=== PATIENT | female | born 1970 | race Caucasian/White ===

== ENCOUNTER 2016-09-03 08:21 | Emergency (ER) | payer OTHER ==
[2016-09-03 08:32] VITALS: BP 126/71
--- NOTE | 2016-09-03 08:45 | ERNOTE ---
ENT HPI Time Seen by Provider: 09/03/16 08:39 Source: patient Exam Limitations: no limitations - Immun/Allergies/Home Medications Allergies/Adverse Reactions: Allergies Allergy/AdvReac Type Severity Reaction Status Date / Time tetracycline [Tetracycline] Allergy Unknown hives, Verified 09/03/16 08:33 itching Home Medications: HOME MEDICATIONS Cephalexin [Keflex] 500 mg PO QID #28 capsule 09/03/16 [Last Taken Unknown] - History of Present Illness Narrative: Patient presents for itching and swelling and redness of the left upper eyelid. This condition started yesterday as patient felt an insect bite to the left upper eyelid then she proceeded to scratch it for 24 hours now the patient comes in for left upper eyelid redness and swelling. He has no complaints with her physician and the eyes seems to be unaffected. Eyes any fevers or chills and she has not taken any medication for this. Review of Systems - Review of Systems Constitutional: Present: no symptoms reported EYE: Present: see HPI ENT: Present: no symptoms reported Respiratory: Present: no symptoms reported Cardiology: Present: no symptoms reported Gastrointestinal/Abdominal: Present: no symptoms reported - Patient's Past Medical History Patient History - Medical: No pertinent hx Patient History - Cardiac/Respiratory: Hypertension Patient History - Cancer: No Hx of Cancer Patient History - Surgical Procedures: No surgical history Patient History - Other: None - Social History Living Situations: home Psych History: No pertinent hx Alcohol Use: none Drug Use: none Physical Exam - Physical Exam General Appearance: Present: wd/wn, alert, no apparent distress Eye Exam: Normal inspection: right, PERRL: right, EOMI: right, Other: left - the left upper eyelid appears a dramatic red warm to the touch I do not appreciate a definite puncture wound however the area appears cellulitic. There are no open lesions or purulent material and the examination of the left eye itself is within normal limits with good pupillary reflexes with this sclera being normal no conjunctival injection noted. The redness is limited to the left upper eyelid only Ears, Nose, Throat: Present: normal ENT inspection, normal pharynx Neck: Present: normal inspection, nontender, supple Respiratory: Present: no respiratory distress, normal breath sounds, no accessory muscle use, chest nontender, lungs clear Cardiovascular/Chest: Present: regular rate, rhythm, no murmur ED Progress - Vital Signs Patient's Vital Signs:: I have reviewed the patient's vital signs. Vital Signs: Vital Signs 09/03/16 08:29 Temperature 36.4 C L Pulse Rate 87 Respiratory 12 Rate Blood Pressure 126/71 O2 Sat by Pulse 96 Oximetry - Progress/Reassessment Chief Complaint: Eye Injury/Trauma Plan - Plan Plan: This patient has cellulitis of the left upper eyelid and will be treated appropriately. Departure Clinical Impression: Cellulitis of left eyelid - Departure Disposition: Home self-care Condition: Good Instructions: Cellulitis, Adult, [id number] Referrals: Donna Whitehead DO [Primary Care Provider] - Prescriptions: Cephalexin [Keflex] 500 mg PO QID #28 capsule
--- OUTSIDE RECORDS SUMMARY | 2016-09-03 08:55 | XMS REPORT | Continuity of Care Document ---
:1970 Author Organization [place] [place] [address] Care Team Providers Name Role Phone Unavailable Primary Care Provider Unavailable Source Comments This disclosure is being made pursuant to the [employer] program and maynot contain all information available regarding this patient.[facility] Active Allergies and Adverse Reactions Not on File Current Medications Be aware that medications may not be up to date as of this document. Alwaysverify current medications with the patient. Not on file Active Problems Not on file Social History Tobacco Use Types Packs/Day Years Used Date Never Assessed Plan of Care Health Maintenance Due Date Last Done Comments Retired-Pertussis Vaccine Adult 1988 Retired-Tetanus Vaccine Adult 1988 Pap Smear 1990 Mammogram 2009 Retired-INFLUENZA VACCINE 12/01/2014 Results from Last 3 Months Not on file
--- OUTSIDE RECORDS SUMMARY | 2016-09-03 08:56 | XMS REPORT | Continuity of Care Document ---
:1970 Author Organization [facility] ([facility]) Address [address] [place] [address] Phone [phone] Care Team Providers Name Role Phone Donna Whitehead Primary Care Provider [phone] Source Comments This disclosure is being made pursuant to the Care Everywhere program, applicable federal and state laws, and may not contain all informaitonavailable regarding this patient.[facility] ([facility]) Active Allergies and Adverse Reactions Allergen Noted Date Severity Reactions Comments Tetracycline 07/25/2016 Rash Current Medications Prescription Sig. Disp. Refills Start Date End Date Status hydroCHLOROthiazide 12.5 Take 12.5 Active mg tablet mg by mouth daily. buPROPion 100 mg tablet Take 100 mg Active by mouth 2 times daily. lisinopril 10 mg tablet Take 10 mg Active by mouth daily. busPIRone 15 mg tablet Take 7.5 mg 08/22/2016 Discontinued by mouth 2 times daily. Active Problems Not on file Most Recent Encounters Date Type Specialty Providers Description 08/24/2016 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) Social History Tobacco Use Types Packs/Day Years Used Date Current Every Day Smoker Cigarettes 1 Smokeless Tobacco: Never Used Tobacco Cessation:Ready to Quit: No; Counseling Given: Yes Comments: Last Filed Vital Signs Vital Sign Reading Time Taken Blood Pressure 120/80 08/22/2016 10:40 AM CDT Pulse 70 08/22/2016 10:40 AM CDT Temperature - - Respiratory Rate - - Height 1.651 m (5' 5") 08/22/2016 10:40 AM CDT Weight 77.565 kg (171 lb) 08/22/2016 10:40 AM CDT Body Mass Index 28.46 08/22/2016 10:40 AM CDT Oxygen Saturation - - Plan of Care Health Maintenance Due Date Last Done Comments Hepatitis B Vaccine (1 of 3 - Primary Series) 1970 Tdap Vaccine 1980 Lipid Disorder Screening 09/06/1987 MMR Vaccine 09/06/1987 Td Vaccine 09/06/1987 Pneumococcal Vaccine (1 of 1 - PPSV23) 1988 Cervical Cancer Screening 09/06/1999 Mammogram 2009 Influenza Vaccine: Seasonal (Season Ended) 2016 Results from Last [address] - STORE ONLY (08/24/2016 9:08 AM)EXTERNAL US - STORE ONLY (2016 11:08 AM)
== END 2016-09-03 08:48 | disposition home or self-care (01) ==
LOC: ER 08:21
DX: H00.036 Abscess of eyelid left eye, unspecified eyelid (principal)

== ENCOUNTER 2017-01-16 08:17 | Emergency (ER) | payer OTHER ==
[2017-01-16] MEDS ORDERED: KETOROLAC TROMETHAMINE 60 MG/2 ML VIAL IM ONE ×2 (08:37→08:55)
--- NOTE | 2017-01-16 08:41 | ERNOTE ---
Back Pain ER HPI Time Seen by Provider: 01/16/17 08:39 Source: patient Exam Limitations: no limitations Immunizations: IMMUNIZATION HX Immunizations Up to Date Yes History of Influenza Vaccine Yes Hx Pneumococcal Vaccination Yes Allergies/Adverse Reactions: Allergies tetracycline [Tetracycline] Allergy (Unknown, Verified 01/16/17 08:25) hives, itching Home Medications: HOME MEDICATIONS Beclomethasone Dipropionate [Qvar] 8.7 gm IH DAILY 01/16/17 [Last Taken Unknown] Hydrochlorothiazide 12.5 mg PO DAILY 01/16/17 [Last Taken Unknown] Ibuprofen [Motrin] 800 mg PO TID PRN #15 tablet 01/16/17 [Last Taken Unknown] LORazepam [Ativan] 0.25 mg PO TID PRN 01/16/17 [Last Taken Unknown] Lisinopril [Zestril] 10 mg PO 01/16/17 [Last Taken Unknown] buPROPion HCL [Wellbutrin] 100 mg PO DAILY 01/16/17 [Last Taken Unknown] Narrative: pt comes in for right sided flank pain and bilateral lumbar pain for 4-5 days. no dysuria and no fever Review of Systems - Review of Systems Constitutional: Present: no symptoms reported EYE: Present: no symptoms reported ENT: Present: no symptoms reported Respiratory: Present: no symptoms reported Cardiology: Present: no symptoms reported Gastrointestinal/Abdominal: Present: See HPI Genitourinary: Present: See HPI - Patient's Past Medical History Patient History - Medical: No pertinent hx Patient History - Cardiac/Respiratory: Hypertension Patient History - Cancer: No Hx of Cancer Patient History - Surgical Procedures: No surgical history Patient History - Other: None LMP (females 10-50): hysterectomy - Social History Living Situations: home Psych History: No pertinent hx Smoking Status: Current every day smoker Alcohol Use: none Drug Use: none - Immunizations Immunizations Up to Date: Yes Hx Pneumococcal Vaccination: Yes History of Influenza Vaccine: Yes Physical Exam - Physical Exam General Appearance: Present: wd/wn, alert, no apparent distress Head Exam: Present: normal inspection, no evidence of injury Ears, Nose, Throat: Present: normal ENT inspection Respiratory: Present: no respiratory distress, normal breath sounds, no accessory muscle use, chest nontender, lungs clear Cardiovascular/Chest: Present: regular rate, rhythm, no murmur, normal peripheral pulses Extremity Exam: Present: other - on examination this patient is tender on the right superior iliac crest upon my palpation. She has no other lesions on her back and she has no muscle spasm. Neurological Exam: Present: alert, oriented, normal mood/affect, no motor/ sensory deficits ED Progress - Results and Orders Patient's Lab Results:: I have reviewed the patient's lab results. - Vital Signs Patient's Vital Signs:: I have reviewed the patient's vital signs. Vital Signs: Vital Signs 01/16/17 08:21 Temperature 37.2 C Pulse Rate 89 Respiratory 15 Rate Blood Pressure 135/94 O2 Sat by Pulse 99 Oximetry - Progress/Reassessment Chief Complaint: Back Pain Plan - Plan Plan: X-ray appears normal and was read as normal by the radiologist. Departure Clinical Impression: Low back pain Qualifiers: Chronicity: acute Back pain laterality: right Sciatica presence: without sciatica Qualified Code(s): M54.5 - Low back pain - Departure Disposition: Home self-care Condition: Good Instructions: Low Back Sprain With Rehab-Sports[facility] Referrals: Donna Whitehead DO [Primary Care Provider] - Prescriptions: Ibuprofen [Motrin] 800 mg PO TID PRN #15 tablet PRN Reason: Pain
[2017-01-16 08:50] LABS: Hematocrit 44.1 % (37.0-47.0); Hemoglobin 15.1 gm/dL (12.5-16.0); Mean Cell Volume 87.2 fl (78-100); Mean Corpuscular Hemoglobin 29.8 pg (27-31); Mean Corpuscular Hgb Conc 34.2 g/dl (32-36); Mean Platelet Volume 9.5 fl (6.0-9.5); Neutrophil # 5.3 K/mm3 (1.3-6.0); Neutrophil % 57.6 % (42-75.0); Platelet Count 310 K/mm3 (150-450); Red Blood Count 5.06 M/mm3 (4.2-5.4); Red Cell Distribution Width 12.1 % (11.5-14.0); White Blood Count 9.2 K/mm3 (4.0-10.5)
[2017-01-16 08:57] LABS: Urine Bilirubin Negative (NEGATIVE); Urine Blood Negative /ul (NEGATIVE); Urine Ketone Negative (NEGATIVE); Urine Nitrite Negative (NEGATIVE); Urine Protein Negative (NEGATIVE); Urine Specific Gravity >=1.030 SP.GR. (1.005-1.010); Urine Urobilinogen Normal (NORMAL)
[2017-01-16 09:04] LABS: Urine Appearance Clear; Urine Bacteria None Seen; Urine Color Yellow; Urine RBC 0-5 /hpf (0-5); Urine WBC None Seen /hpf (0-5)
[2017-01-16 10:03] VITALS: BP 98/59
== END 2017-01-16 10:04 | disposition home or self-care (01) ==
LOC: ER 08:17
DX: M54.5 Low back pain (principal); F17.200 Nicotine dependence, unspecified, uncomplicated; I10 Essential (primary) hypertension

== ENCOUNTER 2018-01-02 06:26 | Inpatient (IN) ==
--- NOTE | 2017-12-12 13:20 | ANES ---
Anesthesia Pre Procedure Eval HOME MEDICATIONS Beclomethasone Dipropionate [Qvar] 8.7 gm IH DAILY 01/16/17 [Last Taken Unknown] Hydrochlorothiazide 12.5 mg PO DAILY 01/16/17 [Last Taken Unknown] Ibuprofen [Motrin] 800 mg PO TID PRN #15 tab 01/16/17 [Last Taken Unknown] LORazepam [Ativan] 0.25 mg PO TID PRN 01/16/17 [Last Taken Unknown] Lisinopril [Zestril] 10 mg PO 01/16/17 [Last Taken Unknown] buPROPion HCL [Wellbutrin] 100 mg PO DAILY 01/16/17 [Last Taken Unknown] Allergies/Adverse Reactions: Allergies Allergy/AdvReac Type Severity Reaction Status Date / Time tetracycline [Tetracycline] Allergy Unknown hives, Verified 12/06/17 15:09 itching - Planned Procedure Planned Procedure: Arthroplasty L Total Hip Medication List Reviewed:: Yes Allergies Verified: Yes Medical History (Last Reviewed 12/12/17 @ 13:19 by Augie Jack CRNA) Bronchitis Onset Date: Unknown Depression Onset Date: Unknown Dysfunctional uterine bleeding Onset Date: 02/07/12 Fatigue Onset Date: 02/05/15 H/O tubal ligation Onset Date: 1997 Herpes simplex Onset Date: Unknown Hip pain Onset Date: Unknown Hyperlipidemia Onset Date: 02/05/15 Hypertension Onset Date: Unknown Tobacco abuse Onset Date: 01/18/12 Surgical History (Last Reviewed 12/12/17 @ 13:19 by Augie Jack CRNA) H/O dilation and curettage Onset Date: Unknown H/O total vaginal hysterectomy Onset Date: 10/19/12 History of endometrial ablation Onset Date: 2011 History of endometrial biopsy Onset Date: Unknown History of incision and drainage Onset Date: 11/04/14 history of finger surgery Onset Date: 05/08/08 Family History (Last Reviewed 12/12/17 @ 13:19 by Augie Jack CRNA) Father Diabetes H/O heart bypass surgery Grandfather Prostate cancer Grandmother Stomach cancer - Family Anesthesia History Family History:: no untoward family reactions to anesthesia - Airway/Neck/Teeth Within Normal Limits:: Yes Teeth Condition: Intact - Respiratory Smoking Status: Current every day smoker Discussed smoking cessation including day of surgery: Yes Sleep Apnea currently treated: No - Cardiovascular Patient History - Cardiac/Respiratory: Hypertension, Hyperlipidemia Tolerates Activity: Fair - Anesthesia Assessment and Plan ASA Class: PS, II Anesthesia Type Plan: Spinal
[~2018-01-02 06:26] MED LIST: MORPHINE SULFATE 15 MG TABLET.SA PO PRN; ROPIVACAINE HCL/PF 100 MG, EPINEPHrine 0.2 MG, KETOROLAC TROMETHAMINE 30 MG in NORMAL S... IJ PRN; TRANEXAMIC ACID 1,000 MG in NORMAL SALINE 100 ML IV PRN; ceFAZolin SODIUM 1 GM VIAL IV PRN
[2018-01-02] MEDS: RINGER'S SOLUTION,LACTATED 1,000 ML IV PRN ×3 (07:03→09:35)
[2018-01-02] MEDS ORDERED: ceFAZolin SODIUM 1 GM VIAL IV PRN (08:36)
[2018-01-02] MEDS ORDERED: ZOLPIDEM TARTRATE 5 MG TABLET PO PRN (09:55)
[2018-01-02] MEDS ORDERED: MORPHINE SULFATE 2 MG/ML DISP.SYRIN IV PRN (09:55)
[2018-01-02] MEDS ORDERED: MAGNESIUM HYDROXIDE 30 ML UDC PO PRN (09:55)
[2018-01-02] MEDS ORDERED: MAG HYDROX/ALUMINUM HYD/SIMETH 30 ML UDC PO PRN (09:55)
[2018-01-02] MEDS ORDERED: diphenhydrAMINE HCL 50 MG/ML VIAL IV PRN (09:55)
[2018-01-02] MEDS ORDERED: ACETAMINOPHEN 500 MG TABLET PO PRN (09:55)
[2018-01-02] MEDS ORDERED: ALPRAZolam 0.25 MG TABLET PO PRN (09:57)
--- NOTE | 2018-01-02 10:00 | OR ---
Operative Report - Dictated Report Narrative: Date: 01/02/2018 Preoperative diagnosis: Left hip degenerative joint disease. Postoperative diagnosis: Left hip degenerative joint disease. Procedure: Left Total hip arthroplasty. Surgeon: Jasen Rothman M.D. Procurement Officer: Silas Walker PA-C Anesthesia: Spinal and local periarticular joint injection. Complications: None Specimens: Bone for disposal. Estimated blood loss: 150 milliliters. Retained implants: Depuy [place] size 3 femoral stem standard offset. Size 48 millimeter outside diameter 3-hole Cowen Gription acetabular cup. 48 millimeter outside by 32 millimeter inside diameter highly cross-linked acetabular liner. 32 millimeter diameter +9 millimeter ceramic femoral head. Cancellous 6.5mm screw 30 millimeter length Indications: Mrs. Hood is a 47-year-old female who has had long-standing left hip pain and arthrosis. This patient was followed in my clinic for period of time with significant complaints of left hip pain consistent with arthritic changes. She failed conservative measures including but not limited to activity modification, passage of time, medications, and other conservative measures. Patient wished to proceed with surgical treatment. The risks, benefits, and alternatives were discussed in clinic. The risks of , blood clots, bleeding, infection, nerve/tendon blood vessel/ injury, malposition of components, dislocation and/or instability of joint, intraoperative fracture, postoperative limited range of motion, persistent pain, failure of components, and need for additional procedures. Patient wished to proceed. Consent was obtained after answering all questions. Procedure: After marking the correct extremity on the floor, the patient was taken to the operating room. A timeout was performed. IV antibiotics consisting of Ancef were administered prior to the procedure. A spinal anesthetic was induced by anesthesia. A Kaplan catheter was inserted. The patient was then transitioned to a lateral position on a well-padded pegboard. An axillary roll was placed. The head was in neutral position. The non- operative down leg was well-padded with SCD and NATHALIA hose in place. The arms were supported and padded to protect from any undue pressure on the bony prominences and nerves. A well-padded anterior and posterior pelvic and chest posts were secured in order to maintain a stable position of the pelvis. This was placed so that the pelvis was perpendicular to the floor. The body was in line with the pelvis. Once it was felt that we had protected all the bony prominences and the patient was well secured with a safety belt as well, the leg was pre-scrubbed with alcohol, prepped and draped in a standard sterile fashion. A standard anterior lateral hip incision was marked out over the greater trochanter. Ioban drapes were then placed. The skin incision was then made. Sharp dissection with a scalpel utilizing cautery for hemostasis was carried out down to the gluteus and iliotibial band fascia. This was split in line with the skin incision. The greater trochanter bursa was excised. The anterior and posterior margins of the abductor tendon were identified. The anterior 1/2-1/3 of the tendon was tagged and reflected off the greater trochanter leaving a sleeve of tendon for repair at the completion of the case. This exposed the underlying hip joint capsule. A limb length stitch was placed in the skin and referencedd off a deloris on the greater trochanter for evaluation of intraoperative limb lengths. An inverted T-type capsulotomy was made extending this up to the brim of the acetabulum. Using Homans to assist with elevation of the soft tissues off the anterior, superior, and inferior aspects of the femoral neck, the hip was then placed in a figure 4 position and the femoral head was dislocated. With the leg in an externally rotated and adducted position, the cutting flag was utilized in order to deloris for a standard femoral neck cut approximately a fingerbreadth above the level of the lesser trochanter. This was done with reference to pre-operative films and overall alignment. This was done while protecting the surrounding soft tissues with Homans. The femoral head was then removed and sized for guidance on preparation of the acetabulum. It was noted that there was loss of articular cartilage on both the femoral head and weightbearing portions of the acetabulum. We then returned the leg to the table and turned our attention to the acetabulum. While protecting the surrounding soft tissues, the labrum and remaining tissue in the fovea were excised using a scalpel and cautery. A series of reamers up to size 48 millimeter were utilized to prepare the acetabulum. The final reamer had good purchase and exposed the bleeding subchondral bone. The acetabulum was then thoroughly irrigated ensuring that all bony and cartilaginous materials were removed, and the final acetabular shell was impacted into place. This was placed in approximately 45 degrees of abduction and 20 degrees of anteversion utilizing the outrigger and body axis for alignment. She did have some large anterior osteophytes which were partially resected utilizing an osteotome. This had a good press fit. 1 6.5mm cancellous screw was placed in the superior posterior quadrant of the acetabulum. The shell was then thoroughly irrigated and the final polyethylene was impacted into place ensuring that it seated completely. This was then protected with a sponge while we returned our attention to the femur. With the leg in a figure 4 position, utilizing Homans for soft tissue protection, a box cutting osteotome, followed by Charmarthaey awl, followed by serial reamers and broaches were utilized in order to prepare the femur. It was found that a size 3 broach gave good axial and rotational stability. The calcar reamer was utilized in order to clean up the cut edges. The proximal femur was visualized to ensure that there were no signs of fracture. A series of heads and necks were trialed. It was found that a standard neck and a + 9 femoral head gave good overall stability. There was minimal longitudinal instability. With the leg in the position of sleep, the femoral head was well covered. Hip range of motion was able to reach full extension and external rotation to greater than 75 degrees prior to impingement along the posterior acetabulum. The hip was able to be flexed to greater than 90 degrees with internal rotation greater than 60 degrees prior to anterior impingement. The limb lengths were near equal based on comparison to the contralateral side and the prior placed limb length stitch. At this point it was felt these were the appropriately sized femoral components as well as neck and femoral head. The trial implants were removed. The femur was thoroughly irrigated. The final implants were impacted into place, and the hip was reduced. After ensuring that there was no damage to the proximal femur, the standard periarticular joint injection of ropivacaine, Toradol, and epinephrine were injected into the joint capsule and surrounding soft tissues. Anesthesia then administered intravenous tranexamic acid. The capsule was repaired with a single interrupted #1 Vicryl. The abductor tendon was repaired to the greater trochanter utilizing #5 Ethibond through drill holes. This was oversewn with #1 Vicryl. The fascia was closed with interrupted #1 Vicryl. The wounds were thoroughly irrigated as we closed in layers. The deep and subcutaneous fat layers were closed with 0 and 3-0 Vicryl respectively. The subcutaneous tissue was closed with a running 3-0 Vicryl and the skin with running 3-0 Monocryl subcutaneous and Prineo Dermabond dressing. All sponge, needle, blade, and instrument counts were correct prior to closing the wounds. Sterile dressings consisting of 4 x 4's, and tape were applied. The patient was awoken and transferred to her hospital bed and then to the postanesthesia care unit in stable condition. Postoperative condition: The plan is to admit to the medical/surgical inpatient floor postoperatively. There will be a projected 1 to 3 day hospital stay. Postoperatively 24 hours of IV antibiotics, pain control, physical therapy, occupational therapy, and medical comanagement will be utilized. Patient will be weightbearing as tolerated with anterior hip precautions. Postoperative films will be obtained in the recovery room.
--- NOTE | 2018-01-02 10:47 | ANES ---
Post Anesthesia Discharge - Transfer of Care Transfer of Care handoff given to nurse: Yes - Discharge from PACU Discharge from PACU when meets criteria: Yes
[2018-01-02] MEDS: KETOROLAC TROMETHAMINE 15 MG/ML VIAL IV SCH ×3 (11:05→23:34)
[2018-01-02] MEDS: ceFAZolin SODIUM 1 GM in DEXTROSE 5 % IN WATER 100 ML IV SCH ×6 (11:05→23:41)
[2018-01-02] MEDS: DEXTROSE 5%-LACTATED RINGERS 1,000 ML IV PRN ×2 (11:06→19:06)
[2018-01-02] MEDS: oxyCODONE HCL/ACETAMINOPHEN 1 TAB TABLET PO PRN ×4 (11:06→23:36)
--- NOTE | 2018-01-02 12:03 | ANES ---
Post Anesthesia Assessment - Vital Signs Vitals: Last Vital Signs Temp 36.7 C 01/02/18 10:35 Pulse 64 01/02/18 10:35 Resp 19 01/02/18 10:35 BP 98/63 01/02/18 10:35 Pulse Ox 94 01/02/18 10:35 Airway Patency: Normal - Mental Status Level Of Consciousness: Awake - Pain Level Pain Score: 0 - N/V Assessment Nausea/Vomiting Presence: None Dehydration:: No
[2018-01-02] MEDS: ONDANSETRON HCL/PF 2 MG/ML VIAL IV PRN (13:49)
[2018-01-02] MEDS ORDERED: SENNOSIDES/DOCUSATE SODIUM 1 TAB TABLET PO SCH (21:00)
[2018-01-02] MEDS: MORPHINE SULFATE 15 MG TABLET.SA PO SCH (21:18)
[2018-01-03] MEDS: oxyCODONE HCL/ACETAMINOPHEN 1 TAB TABLET PO PRN ×2 (04:53→10:02)
[2018-01-03] MEDS: KETOROLAC TROMETHAMINE 15 MG/ML VIAL IV SCH ×2 (04:54→11:28)
[2018-01-03 05:26] LABS: Hemoglobin 10.3 gm/dL (12.5-16.0); Mean Corpuscular Hemoglobin 29.6 pg (27-31); Mean Corpuscular Hgb Conc 32.2 g/dl (32-36); Mean Platelet Volume 9.8 fl (8-12.5); Platelet Count 185 K/mm3 (150-450); Red Blood Count 3.48 M/mm3 (4.2-5.4); Red Cell Distribution Width 13.5 % (11.5-14.0); White Blood Count 8.2 K/mm3 (4.0-10.5)
[2018-01-03 05:40] LABS: Anion Gap 9.2 mmol/L (6.8-13.8); BUN/Creatinine Ratio 14.5 (9.0-21.6); Calcium * 8.2 mg/dL (7.9-10.9); Carbon Dioxide 25.7 mmol/L (24-32.6); Estimated Creat Clear 112.4; Potassium 3.9 mmol/L (3.4-4.6)
[2018-01-03] MEDS: ONDANSETRON HCL/PF 2 MG/ML VIAL IV PRN (07:07)
[2018-01-03] MEDS: MORPHINE SULFATE 15 MG TABLET.SA PO SCH (08:24)
[2018-01-03] MEDS ORDERED: ENOXAPARIN SODIUM 40 MG/0.4 ML SYRG SC SCH (08:55)
[2018-01-03] MEDS ORDERED: LISINOPRIL 10 MG TABLET PO SCH (09:00)
[2018-01-03] MEDS ORDERED: HYDROCHLOROTHIAZIDE 12.5 MG CAPSULE PO SCH (09:00)
--- NOTE | 2018-01-03 12:20 | DS ---
(1) Status post left hip replacement Problem: Acute (2) Degenerative joint disease of left hip Problem: Chronic (3) Acute blood loss anemia Problem: Acute (4) Hypertension Problem: Chronic (5) Hyperlipidemia Problem: Chronic Description of Stay: Mrs. Hwang was admitted to the floor after undergoing left total hip arthroplasty. Tolerated this well. Was admitted to the floor postoperatively for 24 hours of IV antibiotics, pain control, medical comanagement, and occupational and physical therapy. OT and PT were consulted to assist with activities of daily living and ambulation. Was made weightbearing as tolerated with range of motion with anterior hip precautions. Pain was initially controlled with IV regimen. This was transitioned to oral once tolerating a by mouth intake. Was resumed on home diet and medications. Had a Kaplan catheter inserted and the operating room which was discontinued on postoperative day 1. Lovenox SCD and NATHALIA hose were utilized for DVT prophylaxis. Vital signs remained stable to the hospital course. Serial labs were obtained which showed a final hemoglobin of 10.3 grams. BMP was reviewed and was stable. Physical examination throughout the hospital course showed an extremity that had sensation that was intact to light touch, palpable pulses, a benign wound, motor intact to the toes, ankle, and knee. Once an oral pain regimen was tolerated and physical therapy goals were met, it was felt that they were stable for discharge to home. Instructions: Continue with weightbearing as tolerated and range of motion with anterior hip precautions. It is OK to shower on the wound if it is not draining. Cover with dry gauze and tape. Change every 2-3 days as needed. Continue with physical therapy. Resume home diet. Report any fever over 101.5 Fahrenheit, uncontrolled pain, increased drainage, foul odor of drainage, new or increased calf pain or shortness of breath, or any other significant complaints. A 325mg dialy aspirin will be started after finishing anticoagulation if not allergic. Continue with NATHALIA hose on the operative extremity until instructed otherwise. No driving until instructed otherwise. Follow up in approximately 10-14 days. Procedures Performed: see notes below List Procedures: Left total hip arthroplasty Results and Findings: Lab Pending Results 01/03/18 05:15: WBC 8.2, RBC 3.48 L, Hgb 10.3 L, Hct 32.0 L, MCV 92.0, MCH 29.6, MCHC 32.2, RDW 13.5, Plt Count 185, MPV 9.8 01/03/18 05:15: Sodium 136, Plasma Sodium 136, Potassium 3.9, Chloride 105, Carbon Dioxide 25.7, Anion Gap 9.2, BUN 8, Creatinine 0.55, Est GFR (Non-Af Amer) 125, BUN/Creatinine Ratio 14.5, Random Glucose 100, Calcium 8.2 Discharge Location: Home Disposition: Home self-care Condition: Good Discharge Activity: Weight bearing, Other - anterior hip precautions Additional Patient Instructions (free text): Outpatient Physical Therapy at [facility] rehab on Dr Rothman follow up Orthopedic appointment on 01/17/18 at 9:45am. Prescriptions (Any new or edited meds): Enoxaparin Sodium [Lovenox] 40 mg SC Q24H #7 disp.syrin Morphine Sulfate [Ms Contin] 15 mg PO Q12H #20 tablet.sa oxyCODONE HCL/ACETAMINOPHEN [Percocet 5 MG/325 MG] 2 tab PO Q4H PRN #90 tablet PRN Reason: Moderate Pain (Pain Scale 4-6) Sennosides/Docusate Sodium [Senokot-S] 2 tab PO HS #30 tablet Complete Home Medications List: Complete Home Medication List: Hydrochlorothiazide 12.5 mg PO DAILY 01/16/17 Lisinopril [Zestril] 10 mg PO DAILY 01/16/17 Alprazolam [Xanax] 0.25 mg PO TID PRN 01/02/18 Enoxaparin Sodium [Lovenox] 40 mg SC Q24H #7 disp.syrin 01/03/18 Morphine Sulfate [Ms Contin] 15 mg PO Q12H #20 tablet.sa 01/03/18 Sennosides/Docusate Sodium [Senokot-S] 2 tab PO HS #30 tablet 01/03/18 oxyCODONE HCL/ACETAMINOPHEN [Percocet 5 MG/325 MG] 2 tab PO Q4H PRN #90 tablet 01/03/18 Amb Orders for Discharge: PT Evaluation and Treatment* Facility: [facility], Location: Rehabilitation Services
[2018-01-03 12:54] VITALS: BP 112/62
== END 2018-01-03 13:46 | disposition home or self-care (01) | DRG 470 ==
LOC: MS 06:26
PROVIDERS: ADMIT Orthopaedic Surgery; ATTEND Orthopaedic Surgery
DX: D62 Acute posthemorrhagic anemia; M25.752 Osteophyte, left hip; Z68.30 Body mass index [BMI] 30.0-30.9, adult; M16.12 Unilateral primary osteoarthritis, left hip; I10 Essential (primary) hypertension; Z79.51 Long term (current) use of inhaled steroids; E78.5 Hyperlipidemia, unspecified; Z88.1 Allergy status to other antibiotic agents; J21.9 Acute bronchiolitis, unspecified; Z23 Encounter for immunization; F32.9 Major depressive disorder, single episode, unspecified; F41.9 Anxiety disorder, unspecified; Z82.49 Family history of ischemic heart disease and other diseases of the circulatory system; R63.5 Abnormal weight gain; F17.210 Nicotine dependence, cigarettes, uncomplicated
CPT/HCPCS: 36415; 73502; 80048; 85027; 90686; 97110; 97116; 97162; 97165; 97530; J2405